=== PATIENT | female | born 1980 | race Caucasian/White ===

== ENCOUNTER 2017-06-10 20:09 | Emergency (ER) | payer OTHER ==
[2017-06-10 20:26] VITALS: TEMP 98.1; BMI 25.4
--- NOTE | 2017-06-10 20:34 | PDOC ---
History of Present Illness - History of Present Illness Initial Comments: 06/11/17 00:11 Ms. Ugalde is a 37 year old female with a significant past medical history of IBS and anemia who presents to the emergency department on recommendation of her PCP for low hemoglobin evaluation. Per pt she has been feeling weak lately and had morning nausea/vomiting when she eats. She says that she has recently had 3 months of heavy periods (LMP May 27) without spotting in between. She also reports some bilateral lower abdominal pain. The patient denies chest pain, shortness of breath, or headache. Denies fever, chills, diarrhea and constipation. Denies dysuria, frequency, urgency and hematuria. Allergies: NKDA Past surgical history: Appendicitis Social history: Denies PMD - Devon Jasso 06/11/17 00:14 <Erwin Tai - Last Filed: 06/11/17 00:22> <Ryan Marcano - Last Filed: 06/11/17 00:55> - General Chief Complaint: Revisit, Lab Variance Stated Complaint: PCP SENT Time Seen by Provider: 06/10/17 20:33 Past History - Past Medical History Asthma: No Cancer: No Cardiac Disorders: No Diabetes: No GI Disorders: Yes (IBS) HTN: No Seizures: No Thyroid Disease: No - Surgical History Appendectomy: Yes - Psycho/Social/Smoking Cessation Hx Anxiety: No Suicidal Ideation: No Smoking History: Never smoked Have you smoked in the past 12 months: No Information on smoking cessation initiated: No Hx Alcohol Use: No Drug/Substance Use Hx: No Substance Use Type: None Hx Substance Use Treatment: No <Erwin Tai - Last Filed: 06/11/17 00:22> <Ryan Marcano - Last Filed: 06/11/17 00:55> - Past Medical History Allergies/Adverse Reactions: Allergies Allergy/AdvReac Type Severity Reaction Status Date / Time No Known Allergies Allergy Verified 06/10/17 20:26 Home Medications: Ambulatory Orders Ferrous Sulfate [Feosol] 325 mg PO DAILY 05/23/14 Vitamins (Sjr) - 1 mg PO DAILY 05/23/14 Acetaminophen [Tylenol .Regular Strength -] 650 mg PO Q3H PRN #20 tablet Ferrous Sulfate [Slow Release Iron] 140 mg PO BID #60 tablet.er 05/24/14 Ibuprofen [Motrin -] 200 mg PO Q4H PRN #20 tablet 05/24/14 Nitrofurantoin Monohyd/M-Cryst [Macrobid -] 100 mg PO BID #20 capsule 06/11/17 Review of Systems - Review of Systems Comments:: 06/11/17 00:13 GENERAL/CONSTITUTIONAL: No fever or chills. No weakness. HEAD, EYES, EARS, NOSE AND THROAT: No change in vision. No ear pain or discharge. No sore throat. CARDIOVASCULAR: No chest pain or shortness of breath RESPIRATORY: No cough, wheezing, or hemoptysis. GASTROINTESTINAL: +Some nausea and vomiting. +Vague lower abdominal pain. No diarrhea or constipation. GENITOURINARY: No dysuria, frequency, or change in urination. MUSCULOSKELETAL: No joint or muscle swelling or pain. No neck or back pain. SKIN: No rash NEUROLOGIC: No headache, vertigo, loss of consciousness, or change in strength/ sensation. ENDOCRINE: No increased thirst. No abnormal weight change HEMATOLOGIC/LYMPHATIC: +Anemic No history of blood clots. ALLERGIC/IMMUNOLOGIC: No hives or skin allergy. <Erwin Tai - Last Filed: 06/11/17 00:22> *Physical Exam - Vital Signs Last Vital Signs Temp Pulse Resp BP Pulse Ox 98.1 F 78 18 127/72 100 06/10/17 20:23 06/10/17 20:23 06/10/17 20:23 06/10/17 20:23 06/10/17 20:23 - Physical Exam Comments: 06/11/17 00:16 GENERAL: Awake, alert, and fully oriented, in no acute distress HEAD: No signs of trauma, normocephalic, atraumatic EYES: PERRLA, EOMI, sclera anicteric, conjunctiva clear ENT: Auricles normal inspection, hearing grossly normal, nares patent, oropharynx clear without exudates. Moist mucosa NECK: Normal ROM, supple, no lymphadenopathy, JVD, or masses LUNGS: No distress, speaks full sentences, clear to auscultation bilaterally HEART: Regular rate and rhythm, normal S1 and S2, no murmurs, rubs or gallops, peripheral pulses normal and equal bilaterally. ABDOMEN: +Mild tenderness noted bilaterally lower quadrants. Soft, normoactive bowel sounds. No guarding, no rebound. No masses EXTREMITIES: Normal inspection, Normal range of motion, no edema. No clubbing or cyanosis. NEUROLOGICAL: Cranial nerves II through XII grossly intact. Normal speech, normal gait, no focal sensorimotor deficits SKIN: Warm, Dry, normal turgor, no rashes or lesions noted. <Erwin Tai - Last Filed: 06/11/17 00:22> - Vital Signs Last Vital Signs Temp Pulse Resp BP Pulse Ox 98.1 F 80 18 112/70 100 06/10/17 20:23 06/11/17 00:46 06/10/17 20:23 06/11/17 00:46 06/10/17 20:23 <Ryan Marcano - Last Filed: 06/11/17 00:55> ED Treatment Course - LABORATORY CBC & Chemistry Diagram: 06/10/17 21:10 06/10/17 21:10 <Erwin Tai - Last Filed: 06/11/17 00:22> - LABORATORY CBC & Chemistry Diagram: 06/10/17 21:10 06/10/17 21:10 - ADDITIONAL ORDERS Additional order review: Laboratory Results 06/10/17 06/10/17 06/10/17 21:10 21:10 21:10 Sodium 140 Potassium 3.9 Chloride 106 Carbon Dioxide 26 Anion Gap 8 BUN 14 D Creatinine 0.6 D Creat Clearance w eGFR > 60 Random Glucose 100 Calcium 8.6 Total Bilirubin 0.7 AST 15 ALT 18 Alkaline Phosphatase 67 Total Protein 7.4 Albumin 3.6 Urine Color Yellow Urine Appearance Cloudy Urine pH 7.0 Ur Specific [place] 1.020 Urine Protein Negative Urine Glucose (UA) Negative Urine Ketones Negative Urine Blood Negative Urine Nitrite Negative Urine Bilirubin Negative Urine Urobilinogen Negative Ur Leukocyte Esterase 3+ H Urine RBC 5 Urine WBC 49 Ur Epithelial Cells Many Urine Bacteria Moderate Urine Mucus Moderate Blood Type A POSITIVE Antibody Screen Negative 06/10/17 21:10 RBC 4.17 MCV 61.6 L MCHC 30.6 L RDW 18.9 H D MPV 6.4 L D Neutrophils % 47.8 D Lymphocytes % 39.0 D Monocytes % 10.1 Eosinophils % 2.5 Basophils % 0.6 - Medications Given in the ED: ED Medications Discontinued Medications Generic Name Dose Route Start Last Admin Trade Name Freq PRN Reason Stop Dose Admin Sodium Chloride 1,000 mls @ 1,000 mls/hr 06/10/17 22:13 06/10/17 22:31 Normal Saline - IV 06/10/17 23:12 1,000 mls/hr ASDIR STA Administration <Ryan Marcano - Last Filed: 06/11/17 00:55> Medical Decision Making - Medical Decision Making 06/10/17 22:23 Patient in no acute distress, UA showed 3+ leukocytes. Will treat for UTI. Additionally, patient has >20 change in systolic BP from sitting to standing. 1L NS given for symptomatic treatment. 06/11/17 00:18 Pt signed out to Dr. Marcano for further care. <Erwin Tai - Last Filed: 06/11/17 00:22> *DC/Admit/Observation/Transfer <Erwin Tai - Last Filed: 06/11/17 00:22> <Ryan Marcano - Last Filed: 06/11/17 00:55> Diagnosis at time of Disposition: Anemia Qualifiers: Anemia type: iron deficiency Iron deficiency anemia type: unspecified iron deficiency Qualified Code(s): D50.9 - Iron deficiency anemia, unspecified Menorrhagia Qualifiers: Menorrahagia type: with regular cycle Qualified Code(s): N92.0 - Excessive and frequent menstruation with regular cycle Urinary tract infection Qualifiers: Urinary tract infection type: acute cystitis Hematuria presence: without hematuria Qualified Code(s): N30.00 - Acute cystitis without hematuria - Discharge Dispostion Disposition: HOME Condition at time of disposition: Stable - Referrals Referrals: Devon Jasso MD [Primary Care Provider] - Elizabeth Truong MD [Staff Physician] - - Patient Instructions Printed Discharge Instructions: DI for Menorrhagia, Anemia, DI for Urinary Tract Infection (UTI)
[2017-06-10 21:20] LABS: BASOPHIL 0.6 % (0-2.0); EOSINOPHIL 2.5 % (0-4.5); MCHC 30.6 g/dl (32.0-36.0); MEAN CELL VOLUME 61.6 fl (80-96); MEAN PLT VOLUME 6.4 fl (7.5-11.1); NEUTROPHILS 47.8 % (42.8-82.8); PLATELET COUNT 374 K/MM3 (134-434); RDW 18.9 % (11.6-15.6); WHITE BLOOD COUNT 9.3 K/mm3 (4.0-10.0)
[2017-06-10 21:21] LABS: MCH 18.9 pg (25.7-33.7)
[2017-06-10 21:28] LABS: URINE APPEARANCE CLOUDY; URINE BILIRUBIN NEGATIVE (NEGATIVE); URINE BLOOD NEGATIVE (NEGATIVE); URINE COLOR YELLOW; URINE GLUCOSE (UA) NEGATIVE (NEGATIVE); URINE KETONE NEGATIVE (NEGATIVE); URINE NITRITE NEGATIVE (NEGATIVE); URINE PROTEIN NEGATIVE (NEGATIVE); URINE UROBILINOGEN NEGATIVE mg/dL (0.2-1.0)
[2017-06-10 21:29] LABS: URINE LEUK ESTERASE 3+ (NEGATIVE)
[2017-06-10 21:35] LABS: URINE BACTERIA MODERATE /hpf (NONE SEEN); URINE MUCUS MODERATE; URINE RBC 5 /hpf (0-3); URINE WBC 49 /hpf (3-5)
[2017-06-10 21:41] LABS: ALBUMIN 3.6 g/dl (3.4-5.0); ALK PHOS 67 U/L (45-117); ANION GAP 8 (8-16); BILIRUBIN,TOTAL 0.7 mg/dL (0.2-1.0); CALCIUM 8.6 mg/dL (8.5-10.1); CO2 26 mmol/L (21-32); CREATININE 0.6 mg/dL (0.55-1.02); GLUCOSE,RANDOM 100 mg/dL (74-106); SGOT/AST 15 U/L (15-37); SGPT/ALT 18 U/L (12-78); TOT PROT 7.4 g/dl (6.4-8.2)
[2017-06-10 22:08] LABS: HYPOCHROMIA 3+; MACROCYTOSIS FEW; MICROCYTOSIS 2+; OVALOCYTE 1+; PLATELET ESTIMATE ADEQUATE (NORMAL); POIKILOCYTOSIS 1+; POLYCHROMASIA RARE
[2017-06-10] MEDS ORDERED: SODIUM CHLORIDE 1,000 ML IV STA (22:13)
--- NOTE | 2017-06-11 00:37 | PDOC ---
Attending Attestation - Resident Resident Name: [email or web address] - ED Attending Attestation I have performed the following: I have examined & evaluated the patient, The case was reviewed & discussed with the resident, I agree w/resident's findings & plan, Exceptions are as noted - HPI HPI: 06/11/17 00:33 37-year-old female with history of menorrhagia presents to the ER for generalized weakness and lightheadedness that is exacerbated by changes in position from supine to standing due to excessive menses over the past 3-4 months. Patient denies chest pain/shortness of breath/abdominal pain/fever/ chills. Patient was evaluated by her primary care physician who obtained a CBC which showed a low H&H and patient was referred to the ER further evaluation and treatment. - Physicial Exam PE: 06/11/17 00:34 Patient is awake and alert, well-appearing, orthostatic clinically and by heart rate (73 while supine increases to 96 while standing) EXAMINATION CONSTITUTIONAL: Well-appearing; well-nourished; in no apparent distress HEAD: Normocephalic; atraumatic EYES: PERRL; EOM intact; conjunctiva are pale; ENMT: External appears normal; normal oropharynx; mm-dry NECK: Supple; non-tender; no cervical lymphadenopathy CARD: Normal S1, S2; no murmurs, rubs, or gallops RESP: Normal chest excursion with respiration; breath sounds clear and equal bilaterally; no wheezes, rhonchi, or rales ABD: Soft, non-distended; non-tender; no palpable organomegaly, no palpable hernias EXT: Normal ROM in all four extremities; non-tender to palpation; distal pulses intact SKIN: Warm, dry, no rash NEURO: No focal neurological deficiencies. - Medical Decision Making 06/11/17 00:49 37-year-old female with history of menorrhagia presents to the ER with symptoms of symptomatic anemia. Patient's hemoglobin is noted to be 7.9 with hematocrit of 25.7. Previous hematocrit available from 2013 is noted to be 29. On initial evaluation, patient is noted to be orthostatic. Patient refused packed red cell transfusion and wish to follow-up as an outpatient with hematology for iron infusions. Patient is unable to tolerate oral iron supplementation due to severe IBS and constipation in the past. Patient has received 1500 mL of normal saline with resolution of her orthostatic symptoms. Repeat heart rate and blood pressure of the same when supine versus standing. Hematology was consulted and will follow-up with the patient in 48 hours. Urinalysis also reveals pyuria with moderate bacteria. Will discharge with Macrobid.
[2017-06-11 00:48] VITALS: BP 112/70; PULSE 80
== END 2017-06-11 01:24 | disposition home or self-care (01) ==
LOC: SUPCPDRO 20:09 → JER 20:09
PROC: 3E0337Z Introduction of Electrolytic and Water Balance Substance into Peripheral Vein, Percutaneous Approach (ICD-10-PCS; principal; 2017-06-10)
DX: N30.00 Acute cystitis without hematuria (principal); N92.0 Excessive and frequent menstruation with regular cycle; D50.9 Iron deficiency anemia, unspecified
CPT/HCPCS: 36415; 80053; 81003; 81015; 84703; 85025; 86850; 86900; 86901; 99282-25

== ENCOUNTER 2017-10-17 23:59 | Emergency (ER) | payer OTHER ==
[2017-10-18 00:24] VITALS: BMI 26.5
[2017-10-18] MEDS ORDERED: ONDANSETRON 4 MG/2 ML VIAL IVPUSH ONE (01:27)
[2017-10-18] MEDS ORDERED: SODIUM CHLORIDE 0.9% 1000 ML INFUS.BAG IV ONE (01:27)
[2017-10-18] MEDS ORDERED: FAMOTIDINE IV 20 MG/12 ML VIAL IVPUSH ONE (01:28)
[2017-10-18] MEDS ORDERED: ACETAMINOPHEN 1000 MG/100 ML VIAL (NON FORMULARY) IVPB ONE (01:31)
[2017-10-18 01:47] LABS: BASO % 0.4 % (0-2.0); EOS % 0.2 % (0-4.5); HEMATOCRIT 24.9 % (32.4-45.2); HEMOGLOBIN 7.3 GM/dL (10.7-15.3); LYMPH % 9.8 % (8-40); MCHC 29.4 g/dl (32.0-36.0); MEAN PLT VOLUME 6.7 fl (7.5-11.1); NEUT % 75.6 % (42.8-82.8); PLATELET COUNT 539 K/MM3 (134-434); RBC 4.16 M/mm3 (3.60-5.2); RDW 20.4 % (11.6-15.6); WHITE BLOOD COUNT 11.3 K/mm3 (4.0-10.0)
[2017-10-18 01:50] LABS: MCH 17.6 pg (25.7-33.7)
--- NOTE | 2017-10-18 01:57 | PDOC ---
History of Present Illness - General Chief Complaint: Nausea/Vomiting Stated Complaint: SYNCOPE Time Seen by Provider: 10/18/17 00:43 - History of Present Illness Initial Comments: 10/18/17 01:54 CHIEF COMPLAINT: vomiting, fever HISTORY OF PRESENT ILLNESS: 37 yo F with hx of IBS, menorrhagia, and symptomatic anemia presents to fast track with fever, cough, sneezing, vomiting x 2, and weakness since this morning. Patient reports body aches and headache as well. PAST MEDICAL HISTORY: as per HPI FAMILY HISTORY: Denies SOCIAL HISTORY: Denies tobacco, alcohol, illicit drug use. SURGICAL HISTORY: Denies ALLERGIES: No known drug allergies REVIEW OF SYSTEMS General/Constitutional: Denies fever or chills. Denies weakness, weight change. HEENT: Denies change in vision. Denies ear pain or discharge. Denies sore throat. Cardiovascular: Denies chest pain or shortness of breath. Respiratory: Denies cough, wheezing, or hemoptysis. Gastrointestinal: Denies nausea, vomiting, diarrhea or constipation. Denies rectal bleeding. Genitourinary: Denies dysuria, frequency, or change in urination. Musculoskeletal: Denies joint or muscle swelling or pain. Denies neck or back pain. Skin and breasts: Denies rash or easy bruising. Neurologic: Denies headache, vertigo, loss of consciousness, or loss of sensation. PHYSICAL EXAM General Appearance: Well-appearing, appropriately dressed. No apparent distress. HEENT: EOMI, PERRLA. No conjunctival pallor. No photophobia, scleral icterus. Respiratory/Chest: Lungs CTAB. No shortness of breath, chest tenderness, respiratory distress, accessory muscle use. No crackles, rales, rhonchi, stridor , wheezing, dullness Cardiovascular: Tachycardic to 97. RRR. S1, S2. Vascular Pulses: Dorsalis-Pedis (R): 2+, Dorsalis-Pedis (L): 2+ Gastrointestinal/Abdominal: Epigastric tenderness. Abdomen soft, non- distended.No organomegaly, pulsatile mass, guarding, hernia, hepatomegaly, splenomegaly. Musculoskeletal/Extremities: Normal inspection. FROM of all extremities, normal capillary refill. Pelvis Stable. No CVA tenderness. No tenderness to extremities, pedal edema, swelling, erythema or deformity. Integumentary: Appropriate color, dry, warm. No cyanosis, erythema, jaundice or rash Neurologic: director of physical security II-XII intact. Fully oriented, alert. Appropriate mood/affect. Motor strength 5/5. No appreciable EOM palsy, facial droop or sensory deficit. Past History - Past Medical History Allergies/Adverse Reactions: Allergies Allergy/AdvReac Type Severity Reaction Status Date / Time No Known Allergies Allergy Verified 10/18/17 00:12 Home Medications: Ambulatory Orders Ferrous Sulfate [Feosol] 325 mg PO DAILY 05/23/14 Vitamins (Sjr) - 1 mg PO DAILY 05/23/14 Acetaminophen [Tylenol .Regular Strength -] 650 mg PO Q3H PRN #20 tablet Ferrous Sulfate [Slow Release Iron] 140 mg PO BID #60 tablet.er 05/24/14 Ibuprofen [Motrin -] 200 mg PO Q4H PRN #20 tablet 05/24/14 Nitrofurantoin Monohyd/M-Cryst [Macrobid -] 100 mg PO BID #20 capsule 06/11/17 Oseltamivir Phosphate [Tamiflu] 75 mg PO BID #10 capsule 10/18/17 Asthma: No Cancer: No Cardiac Disorders: No Diabetes: No GI Disorders: Yes (IBS) HTN: No Seizures: No Thyroid Disease: No - Surgical History Appendectomy: Yes - Suicide/Smoking/Psychosocial Hx Smoking History: Never smoked Have you smoked in the past 12 months: No Information on smoking cessation initiated: No Hx Alcohol Use: No Drug/Substance Use Hx: No Substance Use Type: None Hx Substance Use Treatment: No *Physical Exam - Vital Signs Last Vital Signs Temp Pulse Resp BP Pulse Ox 97 H 14 113/72 100 10/18/17 00:12 10/18/17 00:12 10/18/17 00:12 10/18/17 00:12 ED Treatment Course - LABORATORY CBC & Chemistry Diagram: 10/18/17 01:30 10/18/17 01:30 - ADDITIONAL ORDERS Additional order review: Laboratory Results 10/18/17 01:30 WBC 11.3 H RBC 4.16 Hgb 7.3 L Hct 24.9 L MCV 60.0 L MCH 17.6 L MCHC 29.4 L RDW 20.4 H Plt Count 539 H D MPV 6.7 L Neutrophils % 75.6 D Lymphocytes % 9.8 D Monocytes % 14.0 H Eosinophils % 0.2 D Basophils % 0.4 10/18/17 01:30 RBC 4.16 MCV 60.0 L MCHC 29.4 L RDW 20.4 H MPV 6.7 L Neutrophils % 75.6 D Lymphocytes % 9.8 D Monocytes % 14.0 H Eosinophils % 0.2 D Basophils % 0.4 Medical Decision Making - Medical Decision Making 10/18/17 01:56 37 yo F with hx of IBS, menorrhagia, and symptomatic anemia presents to fast track with fever, cough, sneezing, vomiting x 2, and weakness since this morning. -CBC, CMP, lipase -IVF, Pepcid, Zofran -flu swab 10/18/17 02:24 Patient is flu+. Patient also has Hg of 7.3 and is symptomatic with dyspnea. Patient currently is pale and fatigued and agrees to receive 1 PRBC. *DC/Admit/Observation/Transfer Diagnosis at time of Disposition: Influenza A Anemia Qualifiers: Anemia type: unspecified type Qualified Code(s): D64.9 - Anemia, unspecified - Discharge Dispostion Disposition: HOME Condition at time of disposition: Stable Admit: No - Prescriptions Prescriptions: Oseltamivir Phosphate [Tamiflu] 75 mg PO BID #10 capsule - Referrals Referrals: Vanna Witt MD [Primary Care Provider] - - Patient Instructions Printed Discharge Instructions: Anemia, DI for Influenza -- Adult Additional Instructions: Please take medications as prescribed. Follow up with your primary care doctor THIS WEEK. If you develop any shortness of breath, palpitations, lightheadedness, fever unrelieved by Motrin or Tylenol, or any new or worsening symptoms, please return to the ER. - Post Discharge Activity
[2017-10-18 02:09] LABS: ALBUMIN 3.2 g/dl (3.4-5.0); ALK PHOS 87 U/L (45-117); ANION GAP 9 (8-16); BILIRUBIN,TOTAL 0.5 mg/dL (0.2-1.0); BLOOD UREA NITROGEN 7 mg/dL (7-18); CALCIUM 7.8 mg/dL (8.5-10.1); CHLORIDE 107 mmol/L (98-107); CO2 23 mmol/L (21-32); CREATININE 0.4 mg/dL (0.55-1.02); GLUCOSE,RANDOM 100 mg/dL (74-106); LIPASE 106 U/L (73-393); SGOT/AST 20 U/L (15-37); SGPT/ALT 19 U/L (12-78); SODIUM 139 mmol/L (136-145); TOT PROT 7.2 g/dl (6.4-8.2)
[2017-10-18] MEDS ORDERED: ONDANSETRON 4 MG/2 ML VIAL ONE (02:27)
[2017-10-18] MEDS ORDERED: ACETAMINOPHEN INJECTION 100 ML IVPB ONE (02:27)
[2017-10-18] MEDS ORDERED: FAMOTIDINE 20 MG/50 ML IVPB 20 MG/50 ML MG IVPB ONE (02:27)
[2017-10-18] MEDS ORDERED: OSELTAMIVIR PHOSPHATE 75 MG CAPSULE PO ONE (05:01)
--- NOTE | 2017-10-18 05:26 | PDOC ---
*Physical Exam - Vital Signs Last Vital Signs Temp Pulse Resp BP Pulse Ox 98.3 F 83 18 100/53 98 10/18/17 05:08 10/18/17 05:08 10/18/17 05:08 10/18/17 05:08 10/18/17 05:08 ED Treatment Course - LABORATORY CBC & Chemistry Diagram: 10/18/17 01:30 10/18/17 01:30 - ADDITIONAL ORDERS Additional order review: Laboratory Results 10/18/17 10/18/17 10/18/17 02:45 01:51 01:30 Sodium 139 Potassium 4.0 Chloride 107 Carbon Dioxide 23 Anion Gap 9 BUN 7 Creatinine 0.4 L Creat Clearance w eGFR > 60 Random Glucose 100 Calcium 7.8 L Total Bilirubin 0.5 D AST 20 D ALT 19 Alkaline Phosphatase 87 Total Protein 7.2 Albumin 3.2 L Lipase 106 Serum , Qual Negative Blood Type A POSITIVE Antibody Screen Negative Crossmatch See Detail 10/18/17 01:30 Influenza Types A,B Antigen (BR[facility]NEY) - Final Nasopharyngeal Swab - Final 10/18/17 01:30 RBC 4.16 MCV 60.0 L MCHC 29.4 L RDW 20.4 H MPV 6.7 L Neutrophils % 75.6 D Lymphocytes % 9.8 D Monocytes % 14.0 H Eosinophils % 0.2 D Basophils % 0.4 - Medications Given in the ED: ED Medications Discontinued Medications Generic Name Dose Route Start Last Admin Trade Name Freq PRN Reason Stop Dose Admin Acetaminophen 1,000 mg 10/18/17 01:31 10/18/17 02:38 Ofirmev Injection - IVPB 10/18/17 01:32 1,000 mg ONCE ONE Administration Famotidine 20 mg in 12 mls @ 144 mls/hr 10/18/17 01:28 10/18/17 02:38 Pepcid 20 Mg/12 Ml Push IVPUSH 10/18/17 01:32 144 mls/hr ONCE ONE Administration Ondansetron HCl 8 mg 10/18/17 01:27 10/18/17 02:38 Zofran Injection IVPUSH 10/18/17 01:28 8 mg ONCE ONE Administration Oseltamivir Phosphate 75 mg 10/18/17 05:01 10/18/17 05:04 Tamiflu - PO 10/18/17 05:02 75 mg ONCE ONE Administration Sodium Chloride 1,000 ml 10/18/17 01:27 10/18/17 02:37 Normal Saline - IV 10/18/17 01:28 1,000 ml ONCE ONE Administration Medical Decision Making - Medical Decision Making 10/18/17 05:26 agree with care from CANDI Zayas *DC/Admit/Observation/Transfer Diagnosis at time of Disposition: Anemia, Influenza A - Discharge Dispostion Disposition: HOME Condition at time of disposition: Stable - Prescriptions Prescriptions: Oseltamivir Phosphate [Tamiflu] 75 mg PO BID #10 capsule - Referrals Referrals: Vanna Witt MD [Primary Care Provider] - - Patient Instructions Printed Discharge Instructions: Anemia, DI for Influenza -- Adult Additional Instructions: Please take medications as prescribed. Follow up with your primary care doctor THIS WEEK. If you develop any shortness of breath, palpitations, lightheadedness, fever unrelieved by Motrin or Tylenol, or any new or worsening symptoms, please return to the ER. - Post Discharge Activity
[2017-10-18] MEDS ORDERED: OSELTAMIVIR PHOSPHATE 75 MG CAPSULE ONE (06:39)
[2017-10-18 06:49] VITALS: BP 102/56; PULSE 83; TEMP 98.7
== END 2017-10-18 06:53 | disposition home or self-care (01) ==
LOC: JER 23:59
PROC: 3E033GC Introduction of Other Therapeutic Substance into Peripheral Vein, Percutaneous Approach (ICD-10-PCS; principal; 2017-10-17)
PROC: 3E033NZ Introduction of Analgesics, Hypnotics, Sedatives into Peripheral Vein, Percutaneous Approach (ICD-10-PCS; 2017-10-17)
PROC: 3E033GC Introduction of Other Therapeutic Substance into Peripheral Vein, Percutaneous Approach (ICD-10-PCS; 2017-10-17)
DX: J09.X2 Influenza due to identified novel influenza A virus with other respiratory manifestations (principal)
CPT/HCPCS: 36415; 36430; 80053; 83690; 84703; 85025; 86850; 86900; 86901; 86922; 87804; 96365; 96375; 99282-25; P9038; P9058

== ENCOUNTER 2018-02-20 11:47 | Emergency (ER) | payer OTHER ==
[2018-02-20 12:11] VITALS: BP 137/79; PULSE 92; TEMP 98.5; BMI 27.4
--- NOTE | 2018-02-20 13:45 | PDOC ---
History of Present Illness - General Chief Complaint: Ear Problem Stated Complaint: EAR PAIN, NAUSEA Time Seen by Provider: 02/20/18 12:55 History Source: Patient Exam Limitations: No Limitations - History of Present Illness Initial Comments: 02/20/18 13:43 37-year-old female presents to the ER complaining of right mastoid pain and is described as 9/10 sharp nonradiating intermittent discomfort with nausea which is exacerbated on touch and no alleviating factors. Patient denies fever, chills , vomiting, headache, dizziness, lightheadedness, facial pain, rhinorrhea, nasal congestion, sore throat, neck pain/stiffness, back pains, chest pain, shortness of breath. Patient denies history of recent otitis media. Patient also has a right lower toothache/lower second molar. Patient has an appointment with the dentist/oral surgeon in one week to have it extracted. Past History - Past Medical History Allergies/Adverse Reactions: Allergies Allergy/AdvReac Type Severity Reaction Status Date / Time No Known Allergies Allergy Verified 02/20/18 12:08 Home Medications: Ambulatory Orders Clindamycin [Cleocin -] 300 mg PO TID #21 capsule 02/20/18 Asthma: No Cancer: No Cardiac Disorders: No COPD: No Diabetes: No GI Disorders: Yes (IBS) HTN: No Seizures: No Thyroid Disease: No - Surgical History Appendectomy: Yes - Suicide/Smoking/Psychosocial Hx Smoking History: Never smoked Have you smoked in the past 12 months: No Hx Alcohol Use: No Drug/Substance Use Hx: No Substance Use Type: None Hx Substance Use Treatment: No Review of Systems - Review of Systems Able to Perform ROS?: Yes Comments:: 02/20/18 13:45 CONSTITUTIONAL: Absent: fever, chills, diaphoresis, generalized weakness, malaise, loss of appetite HEENT: +right mastroid pain Absent: rhinorrhea, nasal congestion, throat pain, throat swelling, difficulty swallowing, mouth swelling, ear pain, eye pain, visual Changes CARDIOVASCULAR: Absent: chest pain, loss of consciousness, palpitations, irregular heart rate, peripheral edema RESPIRATORY: Absent: cough, shortness of breath, dyspnea with exertion, orthopnea, wheezing, stridor, hemoptysis GASTROINTESTINAL: Absent: abdominal pain, abdominal distension, nausea, vomiting, diarrhea, constipation, melena, hematochezia GENITOURINARY: Absent: dysuria, frequency, urgency, hesitancy, hematuria, flank pain, genital pain MUSCULOSKELETAL: Absent: myalgia, arthralgia, joint swelling SKIN: Absent: rash, itching, pallor HEMATOLOGIC/IMMUNOLOGIC: Absent: easy bleeding, easy bruising, lymphadenopathy, frequent infections Is the patient limited Occitan proficient: No *Physical Exam - Vital Signs Last Vital Signs Temp Pulse Resp BP Pulse Ox 98.5 F 92 H 19 137/79 100 02/20/18 12:08 02/20/18 12:08 02/20/18 12:08 02/20/18 12:08 02/20/18 12:08 - Physical Exam Comments: 02/20/18 13:46 GENERAL: Well developed, well nourished. Awake and alert. No acute distress. HEENT: +Pain to right mastoid on palp Negative mastoid bogginess or erythema Negative dental pain on percussion Normocephalic, atraumatic. PERRLA, EOMI. No conjunctival pallor. Sclera are non- icteric. Moist mucous membranes. Oropharynx is clear. NECK: Supple. Full ROM. No JVD. Carotid pulses 2+ and symmetric, without bruits. No thyromegaly. No lymphadenopathy. CARDIOVASCULAR: Regular rate and rhythm. No murmurs, rubs, or gallops. Distal pulses are 2+ and symmetric. PULMONARY: No evidence of respiratory distress. Lungs clear to auscultation bilaterally. No wheezing, rales or rhonchi. ABDOMINAL: Soft. Non-tender. Non-distended. No rebound or guarding. No organomegaly. Normoactive bowel sounds. MUSCULOSKELETAL Normal range of motion at all joints. No bony deformities or tenderness. No CVA tenderness. EXTREMITIES: No cyanosis. No clubbing. No edema. No calf tenderness. SKIN: Warm and dry. Normal capillary refill. No rashes. No jaundice. Moderate Sedation - Procedure Monitoring Vital Signs: Vital Signs Temp Pulse Resp BP Pulse Ox 98.5 F 92 H 19 137/79 100 02/20/18 12:08 02/20/18 12:08 02/20/18 12:08 02/20/18 12:08 02/20/18 12:08 ED Treatment Course - LABORATORY CBC & Chemistry Diagram: 02/20/18 14:20 - RADIOLOGY Radiology Studies Ordered: Category Date Time Status TEMPORAL BONES CT W/O CONTRAST [CT] Stat CT Scan 02/20/18 13:25 Ordered Radiograph Interpretation: 02/20/18 15:28 CT Temporal: Clear middle ear cavities her mastoids. No evidence of otomastoiditis *DC/Admit/Observation/Transfer Diagnosis at time of Disposition: Earache on right - Discharge Dispostion Disposition: HOME Condition at time of disposition: Stable Decision to Admit order: No - Prescriptions Prescriptions: Clindamycin [Cleocin -] 300 mg PO TID #21 capsule - Referrals Referrals: Jax Krishnan MD [Staff Physician] - - Patient Instructions Printed Discharge Instructions: DI for Ear Pain-Adult Additional Instructions: Follow up with Dr. Krishnan/ENT tomorrow at 4:30 pm Tylenol alternate with Motrin as needed for pain Return to the ER for severe/persistent/worsening symptoms The right sided ear pain can very well come from your toothache You had a CAT scan of the temporal bone this afternoon which shows a clear middle ear cavity and mastoids. There is no evidence of otomastoiditis - Post Discharge Activity
[2018-02-20] MEDS ORDERED: IBUPROFEN 600 MG TABLET (FP) PO ONE (14:22)
[2018-02-20 14:31] LABS: BASO % 0.5 % (0-2.0); HEMATOCRIT 32.8 % (32.4-45.2); HEMOGLOBIN 9.9 GM/dL (10.7-15.3); LYMPH % 25.5 % (8-40); MCH 20.3 pg (25.7-33.7); MCHC 30.3 g/dl (32.0-36.0); MEAN CELL VOLUME 66.8 fl (80-96); MEAN PLT VOLUME 6.7 fl (7.5-11.1); MONO % 11.1 % (3.8-10.2); NEUT % 59.9 % (42.8-82.8); PLATELET COUNT 454 K/MM3 (134-434); RDW 18.3 % (11.6-15.6); WHITE BLOOD COUNT 9.6 K/mm3 (4.0-10.0)
[2018-02-20 14:40] LABS: ADD RBC MORPHOLOGY YES
[2018-02-20] MEDS ORDERED: CLINDAMYCIN HCL 300 MG CAPSULE PO ONE (15:14)
[2018-02-20 16:28] LABS: ERYTHROCYTE SEDIMENTATION RATE 28 mm/hr (0-20)
== END 2018-02-20 15:31 | disposition home or self-care (01) ==
LOC: JERFT 11:47
DX: H92.01 Otalgia, right ear (principal); K08.89 Other specified disorders of teeth and supporting structures
CPT/HCPCS: 36415; 70480-TC; 84703; 85025; 85651; 99281-25

== ENCOUNTER → 2020-09-24 | Day surgery (SDC) | payer OTHER | END | disposition home or self-care (01) | LOC: FMAMMOTONE 09:51 | PROVIDERS: ATTEND Surgery | PROC: 0HBT3ZX Excision of Right Breast, Percutaneous Approach, Diagnostic (ICD-10-PCS; principal; 2020-09-24) | DX: N64.89 Other specified disorders of breast (principal); R92.1 Mammographic calcification found on diagnostic imaging of breast | CPT/HCPCS: 19081; 76098-TC-FY; 87899; 88305-TC ==